=== PATIENT | female | born 1975 | race Caucasian/White ===

== ENCOUNTER 2017-08-10 07:36 | Day surgery (SDC) | payer BC ==
[~2017-08-10] VITALS: Ht 172.7 cm; Wt 81.0 kg
[2017-08-10 08:36] VITALS: Ht 172.7 cm; Wt 81.0 kg
[2017-08-10] MEDS ORDERED: IMMODIUM PO (08:39)
[2017-08-10] MEDS ORDERED: OMEPRAZOLE (08:39)
[2017-08-10 08:43] VITALS: BP 124/86; PULSE 73; RESP 26
--- NOTE | 2017-08-10 09:49 | OPPN ---
Date/Time of Note Date/Time of Note DATE: 08/10/17 TIME: 09:47 Operative Report Preoperative Diagnosis Abdominal pain Chronic diarrhea Postoperative Diagnosis Gastritis with erosions Sigmoid colitis Internal hemorrhoids Sigmoid polyp Operation/Procedure Performed Esophagogastroduodenoscopy and biopsy Colonoscopy and biopsy Surgeon see signature line assistant program manager None Anesthesia: moderate sedation Estimated blood loss: none Transfusion Required none Specimen Gastric mucosal biopsy Small bowel biopsy Colon biopsy Grafts/Implants none Complications none STERLING ESQUIVEL MD Aug 10, 2017 09:49
--- NOTE | 2017-08-10 09:49 | OPPN ---
Date/Time of Note Date/Time of Note DATE: 08/10/17 TIME: 09:47 Operative Report Preoperative Diagnosis Abdominal pain Chronic diarrhea Postoperative Diagnosis Gastritis with erosions Sigmoid colitis Internal hemorrhoids Sigmoid polyp Operation/Procedure Performed Esophagogastroduodenoscopy and biopsy Colonoscopy and biopsy Surgeon see signature line fitness assistant None Anesthesia: moderate sedation Estimated blood loss: none Transfusion Required none Specimen Gastric mucosal biopsy Small bowel biopsy Colon biopsy Grafts/Implants none Complications none STERLING ESQUIVEL MD Aug 10, 2017 09:49
--- NOTE | 2017-08-10 09:49 | OPPN ---
Date/Time of Note Date/Time of Note DATE: 08/10/17 TIME: 09:47 Operative Report Preoperative Diagnosis Abdominal pain Chronic diarrhea Postoperative Diagnosis Gastritis with erosions Sigmoid colitis Internal hemorrhoids Sigmoid polyp Operation/Procedure Performed Esophagogastroduodenoscopy and biopsy Colonoscopy and biopsy Surgeon see signature line children's nursery assistant None Anesthesia: moderate sedation Estimated blood loss: none Transfusion Required none Specimen Gastric mucosal biopsy Small bowel biopsy Colon biopsy Grafts/Implants none Complications none STERLING ESQUIVEL MD Aug 10, 2017 09:49
[2017-08-10] MEDS ORDERED: MIDAZOLAM 1 MG/ML 2 ML INJ ONE ×3 (10:03→10:04)
[2017-08-10] MEDS ORDERED: FENTAnyl 50 MCG/ML VIAL ONE (10:04)
--- NOTE | 2017-08-11 02:47 | GILP ---
DATE OF PROCEDURE: PROCEDURES: 1. Esophagogastroduodenoscopy and biopsy. 2. Colonoscopy and biopsy. SURGEON: Sterling Skinner MD PREOPERATIVE DIAGNOSES: 1. Abdominal pain. 2. Chronic diarrhea. POSTOPERATIVE DIAGNOSES: 1. Gastritis with erosions. 2. Gastric mucosal biopsies were taken for Helicobacter pylori test. 3. Small bowel biopsies were taken to rule out celiac disease. 4. Colonoscopy all the way to the cecum and into the terminal ileum. 5. Normal terminal ileum. 6. Nonspecific colitis in the sigmoid colon and biopsies were taken for histopathology. 7. Small sigmoid polyp was removed using biopsy forceps. 8. Internal hemorrhoids. INDICATION FOR THE PROCEDURES: Ms. Gayla Skaggs is a 42-year-old female patient who had upper ab dominal pain, not responding to therapy. She also had chronic diarrhea. The patient was scheduled for endoscopy and colonoscopy for further evaluation. The procedures and possible complications are well explained to the patient, she understood and cons ented to the procedures. Under the influence of fentanyl and Versed, the gastroscope was carefully introduced into the esophagus and under direct vision, it was advanced to the stomach and through th e pylorus into the duodenal bulb and descending duodenum. FINDINGS: ESOPHAGUS: The mucosa was normal. STOMACH: The patient had gastritis with erosions. Gastric mucosal biopsies were taken for H. pylor i test. Duodenum was normal. Small bowel biopsies were taken to rule out celiac disease. The colonoscope was carefully introduced in the rectum and under direct vision, it was advanced all the way to the cecum and into the ileocecal valve into the terminal ileum. FINDINGS: The terminal ileum was normal. The patient was noted to have nonspecific colitis in the sigmoid colon and biopsies were taken for histopathology. The patient also had a small sigmoid colo n polyp and it was removed. She had internal hemorrhoids. She tolerated the procedure very well and there was no complication from the procedures. At the end of the procedures, she was awake with stable vital signs and she was discharged home to the care of her family. IMPRESSION: Please see postoperative diagnoses. PLAN 1. Nexium 24 hours p.o. q.a.m. 2. Bentyl 10 mg p.o. t.i.d. a.c. 3. Await histopathology reports. Dictated By: STERLING GLOVER/MARI Conf#: [id number] [facility]#: [id number]
== END 2017-08-10 11:53 | disposition home or self-care (01) ==
LOC: GIL 07:36
PROVIDERS: ATTEND Internal Medicine Gastroenterology
DX: D12.5 Benign neoplasm of sigmoid colon (principal); K29.60 Other gastritis without bleeding; K64.8 Other hemorrhoids
CPT/HCPCS: 43239; 45380; 84703; 87081; 88305; J2250; J3010; Z7610